=== PATIENT | male | born 1945 | race Caucasian/White ===

== ENCOUNTER 2023-06-10 17:11 | Outpatient (REF) | payer MEDICARE, BC, SELFPAY ==
--- NOTE | 2023-06-10 11:00 | SKI_PTH ---
PATIENT: Kvng Oviedo LOC: [facility] U#:[id number] AGE/SX: 78/M ROOM: RE06/10/[address]: Alok Haywood DO : 1945 BED: DIS: 06/10/2023 SPEC #: [id number] RECD: 06/13/23 12:45 STATUS: SOFIA REQ #: [id number] MEHREEN: 06/10/23 11:[address]: Alok Haywood DEPT: Surgical Specimen RECD BY: Dunia Mcgregor ENTERED: 06/13/23 12:46 SP TYPE: SKI OTHR DR: Kvng Wise Tissues: 1 - SKIN BIOPSY(SHAVE/PUNCH) 2 - SKIN BIOPSY(SHAVE/PUNCH) 3 - SKIN BIOPSY(SHAVE/PUNCH) Procedures: SKIN LEVEL 4 Comments: [id number]
== END 2023-06-10 17:12 | disposition home or self-care (01) ==
LOC: LBN 17:11
PROVIDERS: PCP Nurse Practitioner Family; Visit Provider Otolaryngology Otolaryngology/Facial Plastic Surgery
DX: L73.9 Follicular disorder, unspecified (principal); D49.2 Neoplasm of unspecified behavior of bone, soft tissue, and skin
CPT/HCPCS: 88305